=== PATIENT | male | born 1995 | race Caucasian/White ===

== ENCOUNTER → 2017-02-17 | Outpatient (CLI) | payer BC ==
--- NOTE | 2017-02-17 10:02 | RADIOLOGY REPORT PS360 ---
CT ABD PELVIS W/ CONTRAST CLINICAL INDICATION: Bloody stools, left lower quadrant pain LLQ PAIN ORDERING PHYSICIAN: MT RIVERA APRN PATIENT AGE: 21 years COMPARISON: None TECHNIQUE: Axial images obtained with sagittal and coronal reformats. PROCEDURE: Oral Contrast: Redicat IV Contrast: 75 mL Isovue-[id number]. FINDINGS: Lower thorax: No acute finding ABDOMEN: Liver: No masses or biliary dilatation. Gallbladder: Cholecystectomy. No ductal dilatation Pancreas: No masses or peripancreatic fluid collections. Spleen: Unremarkable. Adrenals: Unremarkable Kidneys/ureters: No masses. No renal calculi. No hydronephrosis. No perinephric fluid collections. No ureteral dilatation or obvious ureteral calculi. Stomach bowel: Nondistended. No obvious mass or thickening. Appendix: The appendix is slightly prominent probably within normal limits. No abnormal wall enhancement or significant stranding of the periappendiceal fat. Please correlate clinically. PELVIS: Reproductive: Unremarkable Bladder: Nondistended. No obvious stones or masses. ABDOMEN & PELVIS: Peritoneum: No abnormal fluid collections. No obvious inflammatory changes. No free air. Lymph nodes: No enlarged lymph nodes apparent. Vasculature: No evidence of abdominal aortic aneurysm. No retroperitoneal hemorrhage evident. Bones: No acute fracture Abdominal wall: Small right inguinal hernia containing fat IMPRESSION: No definite acute intra-abdominal or pelvic findings. Small right inguinal hernia containing fat Mild prominence of the appendix of questionable clinical significance
== END ==
LOC: RAD 01-31 09:45
DX: R10.32 Left lower quadrant pain (principal)
CPT/HCPCS: Q9967

== ENCOUNTER 2017-02-24 09:37 | Day surgery (SDC) | payer BC ==
--- NOTE | 2017-02-24 11:38 | Operative Note ---
Colonoscopy ([facility]) Procedure date: 02/24/17 Date of : [birth year] Procedure:Colonoscopy Colonoscopy with cold biopsy Indications: Mr. Florez is a 21-year-old gentleman who has had LEFT lower quadrant abdominal pain. He also has had diarrhea since his cholecystectomy 2 years ago. He reports abdominal cramps and discomfort. He has had occasional bright red blood. The patient states that his LEFT lower quadrant abdominal pain has been since early January until the present time. He was treated with Cipro and Flagyl which helped. He reports no weight loss or mucus with his bowel movements. He reports no family history of colitis, Crohn's disease or colon cancer. Performing Provider: Leo Heller MD Referrring Provider: [place] SINCLAIR Sedation: Fentanyl 100 mg IV/Versed 7 mg IV Procedure: Prior to the procedure, a history and physical exam was performed, and patient medications and allergies were reviewed. The risks and benefits of the procedure and the sedation options and risks were discussed with the patient. All questions were answered and informed consent was obtained. Patient identification and proposed procedure were verified by the physician and the nurse. The patient was placed in a left lateral decubitus position. Throughout the procedure, the patient's blood pressure, pulse, and oxygen saturations were monitored continuously. Findings: On digital rectal examination there was normal rectal tone. There were no external hemorrhoids. The colonoscope was introduced through the anal canal to the rectum and advanced to the cecum. The ileocecal valve and appendiceal orifice were identified. The scope was advanced a short distance into the ileum which appeared grossly normal. The scope was then withdrawn into the colon. The cecum, ascending, transverse, descending, sigmoid and rectum were grossly normal. There was a single diminutive 3 mm descending colon polyp removed via cold biopsy. There was no evidence of diverticulosis. Upon retroflexion within the rectum there were grade 1 internal hemorrhoids. Impressions: 1. Diminutive descending polyp 2. Grade 1 internal hemorrhoids Recommendations: I do feel that the patient has cholerrheic diarrhea and may benefit from a bile binding resin (Colestid or cholestyramine). We will also discuss dietary measures to follow. If the patient has recurrent pain, I would recommend imaging study/CAT scan of the abdomen and pelvis. Complications: None EBL (ml): 0 at 6000
[2017-02-24 16:46] VITALS: BP 102/63
== END 2017-02-24 12:39 | disposition home or self-care (01) ==
LOC: SDC 09:37
PROVIDERS: Internal Medicine Gastroenterology
PROC: 0DBM8ZX Excision of Descending Colon, Via Natural or Artificial Opening Endoscopic, Diagnostic (ICD-10-PCS; principal; 2017-02-24 11:00)
DX: D12.4 Benign neoplasm of descending colon (principal); K64.0 First degree hemorrhoids